=== PATIENT | female | born 1975 | race Caucasian/White ===

== ENCOUNTER 2017-01-23 14:34 | Emergency (ER) | payer BC, OTHER ==
[2017-01-23 14:40] VITALS: BP 170/104; BMI 36.9
--- NOTE | 2017-01-23 16:43 | RAD ---
HISTORY: Left wrist pain. Complete radiographic series of the left wrist. Findings: No evidence for acute cortical disruption or dislocation can be identified. The carpal louis alana appear well aligned. No focal joint erosions are observed to suggest an inflammatory arthritis. The visualized distal radius and ulna are unremarkable. No significant soft tissue abnormality can be identified. However, if the patient has focal anatomic snuffbox tenderness, then repeat plain irina m imaging in 10-14 days or assessment with MRI imaging of the left wrist would be helpful to exclude an occult scaphoid fracture. No other bony or soft tissue abnormalities are seen, however. The DRUJ appears intact. IMPRESSION: 1. Negative exam for acute fracture or dislocation, as above. Reported By:
[2017-01-23] MEDS ORDERED: TORADOL 60 MG VIAL IM ONE (17:08)
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
[2017-01-23] MEDS ORDERED: CATAPRES TAB 0.2 MG PO ONE (17:28)
[2017-01-23] MEDS ORDERED: CATAPRES TAB 0.2 MG ONE (17:32)
[2017-01-23] MEDS ORDERED: CATAPRES TAB 0.1 MG PO ONE (18:14)
[2017-01-23] MEDS ORDERED: LASIX IVP ONE (18:15)
[2017-01-23] MEDS ORDERED: TYLENOL #3 TAB (W/CODEINE) PO STA (18:16)
[2017-01-23] MEDS ORDERED: LASIX PO STA (18:17)
[2017-01-23] MEDS ORDERED: TYLENOL #3 TAB (W/CODEINE) PO ONE (18:17)
[2017-01-23] MEDS ORDERED: CATAPRES TAB 0.1 MG ONE (18:18)
[2017-01-23] MEDS ORDERED: LASIX ONE (18:18)
== END 2017-01-23 18:43 | disposition home or self-care (01) ==
LOC: ER 14:34
DX: S60.212A Contusion of left wrist, initial encounter (principal); M25.532 Pain in left wrist; I10 Essential (primary) hypertension; Y33.XXXA Other specified events, undetermined intent, initial encounter; Y92.9 Unspecified place or not applicable
CPT/HCPCS: 73100; 99282; 99283

== ENCOUNTER → 2017-04-22 | Outpatient (CLI) | payer OTHER ==
--- NOTE | 2017-04-22 15:07 | RAD ---
Examination: Left shoulder, three views History: Pain, degenerative joint disease Findings: There is no evidence for recent injury, osteolytic disease or periarticular calcification. There is slight degenerative narrowing and sclerosis at the acromioclavicular joint. The glenohumeral articulation is unremarkable for age. Impression: No acute process identified. Mild degenerative changes at the AC joint. Reported By:
== END ==
LOC: RAD 12:19
PROVIDERS: ATTEND Nurse Practitioner Family
DX: M19.012 Primary osteoarthritis, left shoulder (principal)
CPT/HCPCS: 73030

== ENCOUNTER 2017-07-06 13:12 | Emergency (ER) | payer OTHER ==
[2017-07-06 13:23] VITALS: BP 178/72; BMI 36.9
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
[2017-07-06] MEDS ORDERED: TORADOL 60 MG VIAL IM ONE (14:13)
[2017-07-06] MEDS ORDERED: TORADOL 60 MG VIAL ONE (14:22)
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
== END 2017-07-06 15:46 | disposition home or self-care (01) ==
LOC: ER 13:30
DX: S13.9XXA Sprain of joints and ligaments of unspecified parts of neck, initial encounter (principal); S43.402A Unspecified sprain of left shoulder joint, initial encounter; R51 Headache; V89.2XXA Person injured in unspecified motor-vehicle accident, traffic, initial encounter
CPT/HCPCS: 70450; 72125; 73030; 96372; 99282; J1885

== ENCOUNTER 2020-10-24 16:03 | Observation (INO) ==
[2020-10-24 17:26] LABS: BASOPHILS # (AUTO) 0.1 X10^3/uL (0.0-0.1); BASOPHILS % (AUTO) 0.6 % (0.2-1.0); EOSINOPHILS # (AUTO) 0.1 x10^3/uL (0.0-0.2); EOSINOPHILS % (AUTO) 0.7 % (0.9-2.9); HEMATOCRIT 50.1 % (36.0-47.0); HEMOGLOBIN 16.9 g/dL (12.0-16.0); LYMPHOCYTES % (AUTO) 19.2 % (21.0-51.0); MEAN CORPUSCULAR HEMOGLOBIN 33.1 pg (27.0-34.0); MEAN CORPUSCULAR HGB CONC 33.8 g/dL (33.0-35.0); MEAN CORPUSCULAR VOLUME 97.7 fL (80.0-100.0); MEAN PLATELET VOLUME 8.6 fL (7.4-11.0); MONOCYTES # (AUTO) 0.5 x10^3/uL (0.3-0.8); MONOCYTES % (AUTO) 2.9 % (0.0-13.0); NEUTROPHILS # (AUTO) 12.2 x10^3/uL (2.2-4.8); NEUTROPHILS % (AUTO) 76.6 % (42.0-75.0); PLATELET COUNT 254 X10^3/uL (150.0-450.0); RED BLOOD COUNT 5.12 X10^6/uL (3.5-5.4); RED CELL DISTRIBUTION WIDTH 13.1 % (11.6-16.5); WHITE BLOOD COUNT 15.9 X10^3/uL (3.6-10.0)
[2020-10-24 17:33] LABS: BLOOD UREA NITROGEN 14 mg/dL (7-18); CALCIUM 9.1 mg/dL (8.5-10.1); CARBON DIOXIDE 30.4 mmol/L (21-32); CHLORIDE 98 mmol/L (98-107); COR NA(FOR HYPERGLY) 137 mmol/L (136-145); CREATININE 0.88 mg/dL (0.55-1.02); SODIUM 137 mmol/L (136-145); eGFR NON BLACK RACES > 60 (>60)
[2020-10-24 18:05] LABS: BILIRUBIN,URINE NEGATIVE (NEGATIVE); BLOOD/HEMOGLOBIN,URINE 1+ (NEGATIVE); GLUCOSE, URINE NEGATIVE (NEGATIVE); KETONES,URINE NEGATIVE (NEGATIVE); LEUKOCYTE ESTERASE ,URINE 2+ (NEGATIVE); NITRITES,URINE NEGATIVE (NEGATIVE); PROTEIN,URINE 1+ (NEGATIVE); UROBILINOGEN,URINE NORMAL (NORMAL)
[2020-10-24 18:13] LABS: APPEARANCE,URINE CLOUDY (CLEAR); BACTERIA,URINE 1+ /HPF (NEGATIVE); COLOR,URINE DARK YELLOW (YELLOW); MUCUS,URINE FEW /HPF (NEGATIVE); SQUAMOUS EPITHELIAL CELL,UR MANY /HPF (NEGATIVE)
[2020-10-24 18:14] LABS: ALANINE AMINOTRANSFERASE 45 Units/L (12-78); ALBUMIN 4.1 g/dL (3.4-5.0); ALKALINE PHOSPHATASE 97 Units/L (46-116); ASPARTATE AMINO TRANSFERASE 32 Units/L (15-37); TOTAL PROTEIN 7.9 g/dL (6.4-8.2)
[2020-10-24 18:35] VITALS: BMI 44.5
[2020-10-24] MEDS ORDERED: BENADRYL INJ 50 MG VIAL IVP PRN (18:45)
[2020-10-24] MEDS ORDERED: ZOFRAN INJ 4 MG VIAL IVP PRN (18:46)
[2020-10-24] MEDS ORDERED: MORPHINE SULFATE INJ 2 MG INJ IVP ONE (18:52)
[2020-10-24] MEDS ORDERED: NS 1000 ML 1,000 ML ONE (19:15)
[2020-10-24] MEDS: NS 1000 ML 1,000 ML IV SCH (19:17)
[2020-10-24] MEDS: PROTONIX INJ 40 MG VIAL IVP SCH (19:17)
[2020-10-24] MEDS: CATAPRES TAB 0.1 MG PO SCH ×2 (19:17→21:12)
[2020-10-24] MEDS: NORCO 7.5/325 MG TAB PO PRN (21:34)
[2020-10-25] MEDS: NORCO 7.5/325 MG TAB PO PRN ×5 (03:49→21:05)
[2020-10-25] MEDS: CATAPRES TAB 0.1 MG PO SCH ×3 (05:08→21:02)
[2020-10-25] MEDS: NS 1000 ML 1,000 ML IV SCH ×4 (05:08→17:09)
[2020-10-25] MEDS: ROCEPHIN 1 GRAM IV PREMIX 1 G/50 ML IV.SOLN. IV SCH ×2 (08:20)
[2020-10-25] MEDS: PROTONIX INJ 40 MG VIAL IVP SCH (08:20)
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
[2020-10-25 09:02] LABS: ALANINE AMINOTRANSFERASE 51 Units/L (12-78); ALBUMIN 3.2 g/dL (3.4-5.0); ALKALINE PHOSPHATASE 93 Units/L (46-116); ASPARTATE AMINO TRANSFERASE 47 Units/L (15-37); BLOOD UREA NITROGEN 9 mg/dL (7-18); CALCIUM 8.1 mg/dL (8.5-10.1); CHLORIDE 101 mmol/L (98-107); COR CA(FOR HYPOALB) 8.7 mg/dL (8.5-10.1); CREATININE 0.72 mg/dL (0.55-1.02); SODIUM 137 mmol/L (136-145); TOTAL PROTEIN 6.4 g/dL (6.4-8.2); eGFR NON BLACK RACES > 60 (>60)
[2020-10-25 10:04] LABS: BASOPHILS # (AUTO) 0.1 X10^3/uL (0.0-0.1); BASOPHILS % (AUTO) 0.6 % (0.2-1.0); EOSINOPHILS # (AUTO) 0.2 x10^3/uL (0.0-0.2); EOSINOPHILS % (AUTO) 1.8 % (0.9-2.9); HEMATOCRIT 43.8 % (36.0-47.0); HEMOGLOBIN 15.3 g/dL (12.0-16.0); LYMPHOCYTES # (AUTO) 2.9 X10^3/uL (1.3-2.9); LYMPHOCYTES % (AUTO) 22.8 % (21.0-51.0); MEAN CORPUSCULAR HEMOGLOBIN 33.7 pg (27.0-34.0); MEAN CORPUSCULAR HGB CONC 34.9 g/dL (33.0-35.0); MEAN CORPUSCULAR VOLUME 96.8 fL (80.0-100.0); MEAN PLATELET VOLUME 8.7 fL (7.4-11.0); MONOCYTES # (AUTO) 0.4 x10^3/uL (0.3-0.8); MONOCYTES % (AUTO) 3.5 % (0.0-13.0); NEUTROPHILS # (AUTO) 8.9 x10^3/uL (2.2-4.8); NEUTROPHILS % (AUTO) 71.3 % (42.0-75.0); PLATELET COUNT 238 X10^3/uL (150.0-450.0); RED BLOOD COUNT 4.53 X10^6/uL (3.5-5.4); RED CELL DISTRIBUTION WIDTH 13.1 % (11.6-16.5); WHITE BLOOD COUNT 12.5 X10^3/uL (3.6-10.0)
[2020-10-25] MEDS: TORADOL 30 MG VIAL IVP PRN ×2 (10:30→18:25)
--- NOTE | 2020-10-25 10:51 | CT ---
HISTORYINTACTABLE BARNETT, VISION CHANGES, N/VSTUDYCT brain without IV contrastCOMPARISONNoneTECHNIQUEMultiple axial images of the brain were obtained without IV contrast. Dose reduction techniques including Automated Exposure Control (AEC) and adjustment of mA and kV were utilized.FINDINGSVisualized portions of the paranasal sinuses and mastoid air cells are clear. No calvarial fracture is seen. No acute intracranial hemorrhage or mass effect is seen. The cerebral ventricles are normal in size. No evidence of acute CVA.IMPRESSIONNo abnormalities are seen.Electronically signed by: Kasi Mesa (October 25, 2020 10:49:44)
--- NOTE | 2020-10-25 10:59 | CT ---
HISTORYFACIAL SWELLING AND PAINSTUDYFACIAL W/O CONCOMPARISONNoneTECHNIQUEAxial images through the facial bones was performed without contrast. CT scan was performed following ALARA (As low as Reasonably Achievable).Coronal and Sagittal reformatted images were performed.FINDINGSImages through the inferior aspect of the brain demonstrate no abnormalities. There is no orbital massesThe paranasal sinuses and mastoid cells are clear, there is no evidence of acute fractures. There is symmetry of the larynx and nasopharynxThe dorsum of the tongue demonstrate no dominant masses. The parapharyngeal fat is preserved. The parotid glands demonstrate no abnormalitiesThere is mild stranding in the left pre maxillary regions as well as lateral to the left maxilla. No drainable collectionThere are multiple cavitary lesions in the left maxilla with a large cavitation in the 2nd molar and and a smaller in the 2nd premolar. Multiple missing teeth. There is also a cavitation lesion in the right 1st and 2nd premolars with some multiple missing teeth. No drainable collections. No aggressive bone lesions. In the right, there are also multiple missing teeth, some partially missing and cavitations.IMPRESSIONMild left inferior pre maxillary and lateral stranding in the soft tissues. No drainable collectionMultiple cavities and missing teeth in the left maxilla/mandibular region with the largest in the 2nd molar of the superior arcade. No drainable collections. Numerous small level 2A lymph nodes.Electronically signed by: Jaci Monahan (October 25, 2020 10:57:20)
[2020-10-25] MEDS: ZESTORETIC 10/ 12.5MG PO SCH (12:44)
[2020-10-25] MEDS: CLEOCIN 600 MG IV PREMIX 600 MG/50 ML BAG IV SCH ×3 (12:44→21:02)
[2020-10-26] MEDS: TORADOL 30 MG VIAL IVP PRN ×2 (02:27→10:23)
[2020-10-26] MEDS: NS 1000 ML 1,000 ML IV SCH ×2 (02:27→08:14)
[2020-10-26] MEDS: CLEOCIN 600 MG IV PREMIX 600 MG/50 ML BAG IV SCH (05:18)
[2020-10-26] MEDS: CATAPRES TAB 0.1 MG PO SCH (05:19)
[2020-10-26 06:46] LABS: BASOPHILS # (AUTO) 0.1 X10^3/uL (0.0-0.1); BASOPHILS % (AUTO) 0.6 % (0.2-1.0); EOSINOPHILS # (AUTO) 0.3 x10^3/uL (0.0-0.2); EOSINOPHILS % (AUTO) 2.7 % (0.9-2.9); HEMOGLOBIN 13.2 g/dL (12.0-16.0); LYMPHOCYTES % (AUTO) 35.2 % (21.0-51.0); MEAN CORPUSCULAR HEMOGLOBIN 33.5 pg (27.0-34.0); MEAN CORPUSCULAR HGB CONC 34.7 g/dL (33.0-35.0); MEAN CORPUSCULAR VOLUME 96.5 fL (80.0-100.0); MEAN PLATELET VOLUME 8.6 fL (7.4-11.0); MONOCYTES # (AUTO) 0.6 x10^3/uL (0.3-0.8); MONOCYTES % (AUTO) 5.2 % (0.0-13.0); NEUTROPHILS # (AUTO) 6.3 x10^3/uL (2.2-4.8); NEUTROPHILS % (AUTO) 56.3 % (42.0-75.0); PLATELET COUNT 243 X10^3/uL (150.0-450.0); RED BLOOD COUNT 3.94 X10^6/uL (3.5-5.4); WHITE BLOOD COUNT 11.3 X10^3/uL (3.6-10.0)
[2020-10-26 06:50] LABS: ALANINE AMINOTRANSFERASE 47 Units/L (12-78); ALBUMIN 2.9 g/dL (3.4-5.0); ALKALINE PHOSPHATASE 76 Units/L (46-116); ASPARTATE AMINO TRANSFERASE 34 Units/L (15-37); BLOOD UREA NITROGEN 8 mg/dL (7-18); CALCIUM 8.1 mg/dL (8.5-10.1); CARBON DIOXIDE 29.3 mmol/L (21-32); CHLORIDE 102 mmol/L (98-107); CREATININE 0.72 mg/dL (0.55-1.02); SODIUM 139 mmol/L (136-145); TOTAL PROTEIN 5.9 g/dL (6.4-8.2); eGFR NON BLACK RACES > 60 (>60)
[2020-10-26] MEDS ORDERED: K-RIDER 10 MEQ/NS 100 ML 10 MEQ/100 ML BAG IV PRN (08:51)
[2020-10-26] MEDS ORDERED: MAGNESIUM SULFATE 1 GRAM/100 mL PREMIX 1 GM/100 ML BAG IV PRN (08:51)
[2020-10-26] MEDS ORDERED: MICRO K EXTEN CAP 10 MEQ PO PRN (08:51)
[2020-10-26] MEDS ORDERED: POTASSIUM CHL 40 MEQ/NS 0.45% 500 ML IV PRN (08:51)
[2020-10-26] MEDS ORDERED: POTASSIUM CHL 60 MEQ/NS 0.45% 500 ML IV PRN (08:51)
[2020-10-26] MEDS ORDERED: KLOR-CON PO PRN (08:51)
[2020-10-26] MEDS ORDERED: K-DUR TAB 20 MEQ PO PRN (08:51)
[2020-10-26] MEDS ORDERED: POTASSIUM CHLORIDE LIQ 20 MEQ UDC PO PRN (08:51)
[2020-10-26] MEDS: ZESTORETIC 10/ 12.5MG PO SCH ×2 (08:53→12:09)
[2020-10-26] MEDS: ROCEPHIN 1 GRAM IV PREMIX 1 G/50 ML IV.SOLN. IV SCH (08:53)
[2020-10-26] MEDS ORDERED: PROTONIX TAB 40 MG PO SCH (09:00)
[2020-10-26 12:09] VITALS: BP 138/82
== END 2020-10-26 12:30 | disposition home or self-care (01) ==
LOC: MED/SURG
PROVIDERS: ADMIT Internal Medicine; ATTEND Internal Medicine
DX: I16.0 Hypertensive urgency; R11.2 Nausea with vomiting, unspecified; K21.9 Gastro-esophageal reflux disease without esophagitis; G43.819 Other migraine, intractable, without status migrainosus; R42 Dizziness and giddiness; K04.7 Periapical abscess without sinus; I10 Essential (primary) hypertension; Z20.822 Contact with and (suspected) exposure to COVID-19; R79.82 Elevated C-reactive protein (CRP); L03.211 Cellulitis of face

== ENCOUNTER 2022-03-03 14:35 | Inpatient (IN) ==
[2022-03-03 16:25] LABS: BASOPHILS % (AUTO) 0.4 % (0.2-1.0); EOSINOPHILS # (AUTO) 0.2 x10^3/uL (0.0-0.2); HEMATOCRIT 46.6 % (36.0-47.0); HEMOGLOBIN 16.2 g/dL (12.0-16.0); LYMPHOCYTES # (AUTO) 3.5 X10^3/uL (1.3-2.9); LYMPHOCYTES % (AUTO) 30.2 % (21.0-51.0); MEAN CORPUSCULAR HEMOGLOBIN 33.7 pg (27.0-34.0); MEAN CORPUSCULAR HGB CONC 34.7 g/dL (33.0-35.0); MEAN CORPUSCULAR VOLUME 97.1 fL (80.0-100.0); MEAN PLATELET VOLUME 9.1 fL (7.4-11.0); MONOCYTES # (AUTO) 0.4 x10^3/uL (0.3-0.8); MONOCYTES % (AUTO) 3.7 % (0.0-13.0); NEUTROPHILS # (AUTO) 7.5 x10^3/uL (2.2-4.8); NEUTROPHILS % (AUTO) 63.7 % (42.0-75.0); RED CELL DISTRIBUTION WIDTH 12.8 % (11.6-16.5); WHITE BLOOD COUNT 11.7 X10^3/uL (3.6-10.0)
[2022-03-03 16:34] LABS: ALANINE AMINOTRANSFERASE 32 Units/L (12-78); ALBUMIN 4.1 g/dL (3.4-5.0); ALKALINE PHOSPHATASE 105 Units/L (46-116); ASPARTATE AMINO TRANSFERASE 23 Units/L (15-37); BLOOD UREA NITROGEN 13 mg/dL (7-18); CALCIUM 8.7 mg/dL (8.5-10.1); CARBON DIOXIDE 31.6 mmol/L (21-32); CHLORIDE 101 mmol/L (98-107); CREATININE 0.81 mg/dL (0.55-1.02); SODIUM 140 mmol/L (136-145); TOTAL PROTEIN 7.8 g/dL (6.4-8.2); eGFR NON BLACK RACES > 60 (>60)
[2022-03-03] MEDS ORDERED: POTASSIUM CHL 60 MEQ/NS 0.45% 500 ML IV PRN (16:37)
[2022-03-03] MEDS ORDERED: KLOR-CON PO PRN (16:37)
[2022-03-03] MEDS ORDERED: MICRO K EXTEN CAP 10 MEQ PO PRN (16:37)
[2022-03-03] MEDS ORDERED: K-RIDER 10 MEQ/NS 100 ML 10 MEQ/100 ML BAG IV PRN (16:37)
[2022-03-03] MEDS ORDERED: POTASSIUM CHLORIDE LIQ 20 MEQ UDC PO PRN (16:37)
[2022-03-03] MEDS ORDERED: POTASSIUM CHL 40 MEQ/NS 0.45% 500 ML IV PRN (16:37)
[2022-03-03] MEDS ORDERED: NORCO 7.5/325 MG TAB PO PRN (16:39)
[2022-03-03] MEDS ORDERED: ZOFRAN INJ 4 MG VIAL IVP PRN (16:39)
[2022-03-03] MEDS: TYLENOL 325 MG TAB PO PRN (16:47)
[2022-03-03] MEDS: K-DUR TAB 20 MEQ PO PRN (16:47)
[2022-03-03] MEDS: ZOSYN VIAL 3.375 GRAMS 3.375 G in NS 100 ML IV 100 ML IV SCH ×2 (17:16→21:54)
[2022-03-03] MEDS: NS 1,000 ML IV 1,000 ML IV SCH (17:17)
[2022-03-03] MEDS: PROTONIX INJ 40 MG VIAL IVP SCH (17:17)
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
[2022-03-03] MEDS: ZESTORETIC 10/ 12.5MG PO SCH (18:27)
[2022-03-03] MEDS: TORADOL 15 MG VIAL IVP PRN (18:28)
[2022-03-03] MEDS: CLEOCIN 600 MG IV PREMIX 600 MG/50 ML BAG IV SCH (21:11)
--- NOTE | 2022-03-03 22:59 | RAD ---
HISTORYfacial swelling, facial cellulitisSTUDYCHEST, 1 VIEWCOMPARISONNone.TECHNIQUEA single frontal view of the chest was obtained.FINDINGSThe heart is normal in size. There is no focal infiltrate. There is no effusion. There is no pneumothorax. The osseous structures are intact.IMPRESSIONNo focal infiltrate or effusion.Electronically signed by: Martha Jenkins (Mar 03, 2022 22:57:04)
[2022-03-04] MEDS: CLEOCIN 600 MG IV PREMIX 600 MG/50 ML BAG IV SCH ×3 (05:24→21:22)
[2022-03-04] MEDS: TORADOL 15 MG VIAL IVP PRN (06:00)
[2022-03-04] MEDS: ZOSYN VIAL 3.375 GRAMS 3.375 G in NS 100 ML IV 100 ML IV SCH ×3 (06:03→22:02)
[2022-03-04 06:22] LABS: BASOPHILS # (AUTO) 0.1 X10^3/uL (0.0-0.1); BASOPHILS % (AUTO) 0.8 % (0.2-1.0); EOSINOPHILS # (AUTO) 0.3 x10^3/uL (0.0-0.2); EOSINOPHILS % (AUTO) 3.1 % (0.9-2.9); HEMATOCRIT 40.4 % (36.0-47.0); HEMOGLOBIN 13.7 g/dL (12.0-16.0); LYMPHOCYTES # (AUTO) 3.9 X10^3/uL (1.3-2.9); LYMPHOCYTES % (AUTO) 35.4 % (21.0-51.0); MEAN CORPUSCULAR HEMOGLOBIN 32.8 pg (27.0-34.0); MEAN CORPUSCULAR VOLUME 96.6 fL (80.0-100.0); MEAN PLATELET VOLUME 9.4 fL (7.4-11.0); MONOCYTES # (AUTO) 0.6 x10^3/uL (0.3-0.8); MONOCYTES % (AUTO) 5.4 % (0.0-13.0); NEUTROPHILS # (AUTO) 6.1 x10^3/uL (2.2-4.8); NEUTROPHILS % (AUTO) 55.3 % (42.0-75.0); RED BLOOD COUNT 4.18 X10^6/uL (3.5-5.4); RED CELL DISTRIBUTION WIDTH 13.1 % (11.6-16.5)
[2022-03-04 06:36] LABS: ALANINE AMINOTRANSFERASE 24 Units/L (12-78); ALBUMIN 3.1 g/dL (3.4-5.0); ALKALINE PHOSPHATASE 85 Units/L (46-116); ASPARTATE AMINO TRANSFERASE 18 Units/L (15-37); BLOOD UREA NITROGEN 13 mg/dL (7-18); CALCIUM 7.7 mg/dL (8.5-10.1); CARBON DIOXIDE 27.7 mmol/L (21-32); CHLORIDE 103 mmol/L (98-107); COR CA(FOR HYPOALB) 8.4 mg/dL (8.5-10.1); CREATININE 0.73 mg/dL (0.55-1.02); SODIUM 138 mmol/L (136-145); TOTAL PROTEIN 6.1 g/dL (6.4-8.2); eGFR NON BLACK RACES > 60 (>60)
--- NOTE | 2022-03-04 07:41 | CT ---
HISTORYFACIAL SWELLING, FACIAL CELLULITUSSTUDYFACIAL W/O CONCOMPARISONNone.TECHNIQUEMultiple axial images of the facial structures were obtained from the mandible to superior portions of the orbits. Sagital and Coronal reformats were created. Dose reduction techniques including Automated Exposure Control (AEC) and adjustment of mA and kV were utilized.FINDINGSFacial bones: No acute facial bone fracture.Severe dental and periodontal disease with multiple dental caries and periapical lucencies.Paranasal sinuses:Clear.Globes:Intact. No retrobulbar swelling or hematoma.Soft tissues:Mild fat stranding in the right face soft tissues. See image 53 series 9. There is thickening of the right platysma muscle. No discernible abscess although lack of contrast limits evaluation. No pathologically enlarged lymph nodes.IMPRESSIONNo acute facial bone fracture.Mild fat stranding in the right face soft tissues consistent with cellulitis. This may be odontogenic in origin given severe periodontal and dental disease. No abscess identified although lack of contrast limits evaluation.Electronically signed by: Pratik Gonsalez (Mar 04, 2022 07:39:45)
[2022-03-04] MEDS: ZESTORETIC 10/ 12.5MG PO SCH (09:28)
[2022-03-04] MEDS: PROTONIX INJ 40 MG VIAL IVP SCH (09:28)
[2022-03-04] MEDS: NS 1,000 ML IV 1,000 ML IV SCH ×2 (14:36→21:21)
[2022-03-04] MEDS: TYLENOL 325 MG TAB PO PRN (20:01)
[2022-03-04 20:39] VITALS: BMI 38.0
[2022-03-04] MEDS: K-DUR TAB 20 MEQ PO PRN (22:02)
[2022-03-05] MEDS: CLEOCIN 600 MG IV PREMIX 600 MG/50 ML BAG IV SCH ×2 (05:04→13:17)
[2022-03-05] MEDS: TYLENOL 325 MG TAB PO PRN (05:04)
[2022-03-05] MEDS: ZOSYN VIAL 3.375 GRAMS 3.375 G in NS 100 ML IV 100 ML IV SCH ×2 (05:33→14:10)
[2022-03-05 06:40] LABS: BASOPHILS # (AUTO) 0.1 X10^3/uL (0.0-0.1); EOSINOPHILS # (AUTO) 0.2 x10^3/uL (0.0-0.2); EOSINOPHILS % (AUTO) 2.5 % (0.9-2.9); HEMATOCRIT 40.7 % (36.0-47.0); HEMOGLOBIN 14.2 g/dL (12.0-16.0); LYMPHOCYTES % (AUTO) 39.8 % (21.0-51.0); MEAN CORPUSCULAR HGB CONC 34.8 g/dL (33.0-35.0); MEAN CORPUSCULAR VOLUME 97.5 fL (80.0-100.0); MEAN PLATELET VOLUME 9.2 fL (7.4-11.0); MONOCYTES # (AUTO) 0.4 x10^3/uL (0.3-0.8); MONOCYTES % (AUTO) 4.3 % (0.0-13.0); NEUTROPHILS # (AUTO) 5.3 x10^3/uL (2.2-4.8); NEUTROPHILS % (AUTO) 52.4 % (42.0-75.0); RED BLOOD COUNT 4.17 X10^6/uL (3.5-5.4); RED CELL DISTRIBUTION WIDTH 12.8 % (11.6-16.5)
[2022-03-05 06:57] LABS: ALANINE AMINOTRANSFERASE 26 Units/L (12-78); ALBUMIN 3.1 g/dL (3.4-5.0); ALKALINE PHOSPHATASE 83 Units/L (46-116); ASPARTATE AMINO TRANSFERASE 20 Units/L (15-37); BLOOD UREA NITROGEN 14 mg/dL (7-18); CALCIUM 7.8 mg/dL (8.5-10.1); CARBON DIOXIDE 26.9 mmol/L (21-32); CHLORIDE 104 mmol/L (98-107); COR CA(FOR HYPOALB) 8.5 mg/dL (8.5-10.1); COR NA(FOR HYPERGLY) 138 mmol/L (136-145); CREATININE 0.84 mg/dL (0.55-1.02); SODIUM 138 mmol/L (136-145); TOTAL PROTEIN 6.2 g/dL (6.4-8.2); eGFR NON BLACK RACES > 60 (>60)
[2022-03-05] MEDS: PROTONIX INJ 40 MG VIAL IVP SCH (09:13)
[2022-03-05] MEDS: MAGNESIUM SULFATE 1 GRAM/100 mL PREMIX 1 G/100 ML BAG IV PRN ×2 (09:14→10:09)
[2022-03-05] MEDS: ZESTORETIC 10/ 12.5MG PO SCH (09:14)
[2022-03-05] MEDS: K-DUR TAB 20 MEQ PO PRN (09:14)
[2022-03-05] MEDS: NS 1,000 ML IV 1,000 ML IV SCH (11:19)
[2022-03-05 12:01] VITALS: BP 143/90
== END 2022-03-05 15:34 | disposition home or self-care (01) | DRG 603 ==
LOC: MED/SURG → OBSVTOIN 14:55
PROVIDERS: ADMIT Internal Medicine; ATTEND Internal Medicine
DX: R79.82 Elevated C-reactive protein (CRP); K05.219 Aggressive periodontitis, localized, unspecified severity; L03.211 Cellulitis of face; I10 Essential (primary) hypertension; R68.84 Jaw pain; K21.9 Gastro-esophageal reflux disease without esophagitis; M06.9 Rheumatoid arthritis, unspecified